=== PATIENT | female | born 1945 | race Caucasian/White ===

== ENCOUNTER → 2017-12-31 | Outpatient (CLI) | payer MEDICARE, OTHER ==
[~2017-12-31] MED LIST: DOXYCYCLINE 10100 MG PO; FISH OIL 1,001000 M2; TUMS
== END ==
LOC: M.RAD 16:00
DX: Z12.31 Encounter for screening mammogram for malignant neoplasm of breast (principal); Z78.0 Asymptomatic menopausal state; M54.5 Low back pain; G89.29 Other chronic pain; C50.919 Malignant neoplasm of unspecified site of unspecified female breast

== ENCOUNTER → 2019-07-02 | Outpatient (CLI) | payer MEDICARE, OTHER | LOC: M.CT 10:00 | DX: J98.11 Atelectasis (principal); M79.89 Other specified soft tissue disorders ==

== ENCOUNTER 2020-08-18 16:05 | Emergency (ER) | payer OTHER, MEDICARE ==
[~2020-08-18] VITALS: Ht 165.1 cm; Wt 80.7 kg
[2020-08-18] MEDS ORDERED: CRESTOR20 MG PO (16:30)
[2020-08-18 19:49] VITALS: BP 156/79
== END 2020-08-18 19:51 | disposition home or self-care (01) ==
LOC: M.ERS 16:05
DX: S51.812A Laceration without foreign body of left forearm, initial encounter (principal); S80.12XA Contusion of left lower leg, initial encounter; S80.11XA Contusion of right lower leg, initial encounter; Z88.5 Allergy status to narcotic agent; V49.88XA Car occupant (driver) (passenger) injured in other specified transport accidents, initial encounter; Y93.89 Activity, other specified; Y92.413 State road as the place of occurrence of the external cause; Y99.9 Unspecified external cause status

== ENCOUNTER → 2020-08-31 | Outpatient (CLI) | payer MEDICARE, OTHER ==
[~2020-08-31] MED LIST changes: +CRESTOR20 MG PO
--- NOTE | 2020-09-01 16:39 | TST ---
[place] [address] TREADMILL STRESS TEST Name: NNEKA,CHELE ANN Room: [facility]#: [id number] Admission: 08/31/20 Attend Phys: Nicolle Quinteros Discharge: Date of : 49 Date of Service: 08/31/20 1527 Report #: [id number] THIS REPORT FOR: cc: Nicolle Quinteros Linda J. DO Blick, David R. MD [facility] ~ DOC #: [id number] cc: DO Jay Rizvi MD [facility] DATE OF SERVICE: 08/31/2020 EXERCISE STRESS TEST INDICATION: Stress test requested in this patient with a history of arm pain. PROCEDURE: The patient was exercised on a Tutu protocol treadmill test. RESULTS: The patient had a pretest heart rate of 60, blood pressure 138/84. The patient was able to exercise for 10 minutes, achieving a peak heart rate of 150, which is greater than 90% of maximum predicted heart rate for the patient's age. Peak blood pressure 202/69. In recovery, the patient had a heart rate of 72, blood pressure 128/64. The patient denied chest pain with exercise, which was terminated secondary to achieving target heart rate. The patient's resting ECG showed a normal sinus rhythm with no significant ST or T-wave changes noted at baseline although the patient was noted to have an incomplete right bundle branch block. With exercise, there were no significant arrhythmias noted. The patient did develop 0.[address] segment depression with exercise and at peak exercise was noted to have [address] segment depression in lead II, III, aVF as well as V4, V5 and V6. The ST segment changes were back to baseline 1 minute into recovery. IMPRESSION: 1. Excellent exercise tolerance. 2. No chest pain with exercise. 3. Nonspecific ST segment changes noted with exercise. IMPRESSION: 1. Clinical response, nonischemic. 2. Two ECG response, indeterminate. 3. Exercise capacity, superior. 4. Indeterminate exercise stress test for predicting future cardiac event secondary to nonspecific ST segment changes. If clinically indicated, I would consider stress testing with myocardial perfusion imaging to improve the specificity of ECG changes for [place] [address] TREADMILL STRESS TEST Name: CHELE EARLY Room: [facility] Barbara#: [id number] Admission: 08/31/20 Attend Phys: Nicolle Quinteros Discharge: Date of : 49 Date of Service: 08/31/20 1527 Report #: [id number] myocardial ischemia. Jay Vela MD FACC DRB/AMY/YUNIOR <ELECTRONICALLY SIGNED> By: Jay Vela MD, FACC 09/01/20 1639 1527 Jay Vela MD, [facility] /nt
== END ==
LOC: M.CRD 14:35
PROVIDERS: ATTEND Family Medicine
DX: M25.511 Pain in right shoulder (principal); G89.29 Other chronic pain; E78.2 Mixed hyperlipidemia; Z82.49 Family history of ischemic heart disease and other diseases of the circulatory system

== ENCOUNTER → 2020-09-02 | Outpatient (CLI) | payer OTHER, MEDICARE | LOC: M.ULTRA 15:49 | PROVIDERS: ATTEND Family Medicine | DX: M79.605 Pain in left leg (principal); M79.89 Other specified soft tissue disorders ==